=== PATIENT | male | born 1950 | race Caucasian/White ===

== ENCOUNTER 2016-12-05 17:58 | Emergency (ER) | payer MEDICARE, BC ==
--- NOTE | 2016-12-05 18:36 | EDM.PDOC ---
ED HPI GENERAL MEDICAL PROBLEM - General Chief Complaint: Head Injury Stated Complaint: FALL/BLURRY VISION Time Seen by Provider: 12/05/16 18:19 Source of Information: Reports: Patient History Limitations: Reports: No Limitations - History of Present Illness INITIAL COMMENTS - FREE TEXT/NARRATIVE: HISTORY AND PHYSICAL: History of present illness: Patient is a 66-year-old male who presents to the emergency room today after falling backwards and hitting his head. He states he was turning around and tripped on his shoe resulting in a fall landing on his left elbow and then striking his head on a concrete floor. He denies any loss of consciousness. He does take an 81 mg aspirin daily. At this time his only complaint is slightly blurred vision. He denies any headache, nausea, vomiting, chest pain or shortness of breath. Patient c/o sinus pain x 1 week Past medical history includes diabetes type 2, hypertension, elevated cholesterol and past NM 10 years ago. Review of systems: As per history of present illness and below otherwise all systems reviewed and negative. Past medical history: As per history of present illness and as reviewed below otherwise noncontributory. Surgical history: As per history of present illness and as reviewed below otherwise noncontributory. Social history: No reported history of drug or alcohol abuse. Family history: As per history of present illness and as reviewed below otherwise noncontributory. Physical exam: Gen.: Nontoxic appearing 66-year-old male. Able to speak in full sentences without shortness of breath. Alert and oriented. HEENT: Normocephalic, pupils equal and reactive bilaterally, Right TM errythmeatous, Sinus pressure with palpation, negative for conjunctival pallor or scleral icterus, mucous membranes moist, throat clear, neck supple, nontender , trachea midline. Scalp was palpated without any obvious deformities, soft spots, open abrasions or wounds. Lungs: Clear to auscultation, breath sounds equal bilaterally, chest nontender. Heart: S1S2, regular, negative for clicks, rubs, or JVD. Abdomen: Soft, nondistended, nontender. Negative for masses or hepatosplenomegaly. Negative for costovertebral tenderness. Pelvis: Stable nontender. Genitourinary: Deferred. Rectal: Deferred. Extremities: Full flexion and extension of the right elbow, no tenderness with palpation. There was no crepitus, obvious deformities or discomfort while palpating the elbow. Strong radial pulse. Good capillary refill, less than 3 seconds. +CMS. Cervical spine and back were palpated with no tenderness, step- offs, crepitus or obvious deformities. Vertebral body or point tenderness. Neurovascular unremarkable. Neuro: Awake, alert, oriented. Cranial nerves II through XII unremarkable. Cerebellum unremarkable. Motor and sensory unremarkable throughout. Exam nonfocal. Patient states that if his " did not make the come to the emergency room would not be here ". I did recommend that we do a head CT and right elbow x- ray. Patient declines the elbow x-ray, "doesn't hurt that bad ". Diagnostics: CT head Therapeutics: [] Impression: Head injury without loss of consciousness Elbow pain, right sinusitis Plan: 1. Please review the head injury instructions that we have provided in your discharge paperwork. 2. He may use Tylenol and/or ibuprofen as needed for pain relief. 3. Apply ice to the elbow if needed, rest, elevate. Although he declined an x- ray at this time, if you need further evaluation please follow-up with orthopedic provider. This phone number has been provided for you 4. Return to the ED as needed and as discussed. Definitive disposition and diagnosis as appropriate pending reevaluation and review of above. Onset: Today Duration: Hour(s): OCCIPITAL AREA Pain Score (Numeric/FACES): 2 - Related Data Allergies Allergy/AdvReac Type Severity Reaction Status Date / Time carrot Allergy Anaphylactic Verified 12/05/16 18:01 Shock celery Allergy Anaphylactic Verified 12/05/16 18:01 Shock cucumber Allergy Anaphylactic Verified 12/05/16 18:01 Shock segun Allergy Anaphylactic Verified 12/05/16 18:01 Shock peas Allergy Anaphylactic Verified 12/05/16 18:01 Shock lettuces Allergy Anaphylactic Uncoded 12/05/16 18:01 Shock Home Meds: Home Meds Celecoxib [CeleBREX] 200 mg PO DAILY 11/06/14 [History] FLUoxetine HCl [Fluoxetine HCl] 40 mg PO DAILY 11/06/14 [History] Lisinopril 10 mg PO DAILY 11/06/14 [History] Metoprolol Succinate [Toprol XL 50mg] 50 mg PO DAILY 11/06/14 [History] Simvastatin 40 mg PO DAILY 11/06/14 [History] SitaGLIPtin [Januvia] 100 mg PO DAILY 04/05/16 [History] Tamsulosin HCl [Flomax] 0.4 mg PO DAILY 04/05/16 [History] metFORMIN HCl [Metformin HCl] 500 mg PO DAILY 04/05/16 [History] Aspirin [[place] Aspirin] 81 mg PO DAILY 04/06/16 [History] Nystatin [Nystatin Crm] 1 applic TOP DAILY 04/06/16 [History] Acetaminophen/HYDROcodone [[place] 325-5 MG] 1 tab PO Q4H PRN #40 tablet 04/11/16 [Rx] Past Medical History - Past Health History Medical/Surgical History: Denies Medical/Surgical History HEENT History: Reports: Other (See Below) Other HEENT History: wears glasses Cardiovascular History: Reports: High Cholesterol, Hypertension, NM, Stents Other Cardiovascular History: NM "10 or 12 yrs ago", angiogram done but no stents needed Respiratory History: Reports: Sleep Apnea Gastrointestinal History: Reports: GERD Other Gastrointestinal History: "reflux better after loosing weight" Genitourinary History: Reports: BPH Other Genitourinary History: hydrocele as Musculoskeletal History: Reports: Arthritis Other Musculoskeletal History: pop shoulder pain Neurological History: Reports: Migraines Psychiatric History: Reports: None Endocrine/Metabolic History: Reports: Diabetes, Type II, Obesity/BMI 30+ Hematologic History: Reports: None Immunologic History: Reports: None, Other (See Below) Oncologic (Cancer) History: Reports: None Dermatologic History: Reports: Other (See Below) Other Dermatologic History: rhinophyma - Infectious Disease History Infectious Disease History: Reports: Chicken Pox, Measles - Past Surgical History Head Surgeries/Procedures: Reports: None GI Surgical History: Reports: Hernia, Inguinal Male Surgical History: Reports: Other (See Below) Musculoskeletal Surgical History: Reports: Arthroscopic Knee Social & Family History - Family History Family Medical History: Noncontributory - Tobacco Use Smoking Status *Q: Never Smoker Second Hand Smoke Exposure: No - Caffeine Use Caffeine Use: Reports: Coffee Caffeine Use Comment: 3 CUPS DAILY - Recreational Drug Use Recreational Drug Use: No ED ROS GENERAL - Review of Systems Review Of Systems: ROS reveals no pertinent complaints other than HPI. ED EXAM, HEAD INJURY - Physical Exam Exam: See Below (The dictation) Course - Vital Signs Last Recorded V/S: Last Vital Signs Temp 36.4 C 12/05/16 17:58 Pulse 65 12/05/16 17:58 Resp 18 12/05/16 17:58 BP 125/74 12/05/16 17:58 Pulse Ox - Orders/Labs/Meds Orders: Active Orders 24 hr Category Date Time Status Head wo Cont [CT] Stat Exams 12/05/16 18:24 Taken Departure - Departure Time of Disposition: 19:52 Disposition: Home, Self-Care 01 Clinical Impression: Head injury, closed, without LOC, Sinusitis, Elbow pain, right - Discharge Information Instructions: Head Injury, Adult, [id number] Referrals: Gina Faith NP [Primary Care Provider] - Forms: ED Department Discharge Additional Instructions: My general discharge The following information is given to patients seen in the emergency department who are being discharged to home. This information is to outline your options for follow-up care. We provide all patients seen in our emergency department with a follow-up referral. The need for follow-up, as well as the timing and circumstances, are variable depending upon the specifics of your emergency department visit. If you don't have a primary care physician on staff, we will provide you with a referral. We always advise you to contact your personal physician following an emergency department visit to inform them of the circumstance of the visit and for follow-up with them and/or the need for any referrals to a consulting specialist. The emergency department will also refer you to a specialist when appropriate. This referral assures that you have the opportunity for follow-up care with a specialist. All of these measure are taken in an effort to provide you with optimal care, which includes your follow-up. Under all circumstances we always encourage you to contact your private physician who remains a resource for coordinating your care. When calling for follow-up care, please make the office aware that this follow-up is from your recent emergency room visit. If for any reason you are refused follow-up, please contact the [facility] Emergency Department at and asked to speak to the emergency department charge nurse. [facility] - [facility] Professional [address], [address] [place] [address] 1. Please review the head injury instructions that we have provided in your discharge paperwork. 2. He may use Tylenol and/or ibuprofen as needed for pain relief. 3. Apply ice to the elbow if needed, rest, elevate. Although he declined an x- ray at this time, if you need further evaluation please follow-up with orthopedic provider. This phone number has been provided for you 4. Return to the ED as needed and as discussed. - My Orders Last 24 Hours: My Active Orders 12/05/16 18:24 Head wo Cont [CT] Stat - Assessment/Plan Last 24 Hours: My Active Orders 12/05/16 18:24 Head wo Cont [CT] Stat
[2016-12-05 20:19] VITALS: BP 137/80
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
== END 2016-12-05 20:10 | disposition home or self-care (01) ==
LOC: MW.ED 17:58
DX: S09.90XA Unspecified injury of head, initial encounter (principal); M25.521 Pain in right elbow; E11.9 Type 2 diabetes mellitus without complications; E66.9 Obesity, unspecified; I10 Essential (primary) hypertension; E78.00 Pure hypercholesterolemia, unspecified; Z79.82 Long term (current) use of aspirin; Z79.899 Other long term (current) drug therapy; Z91.018 Allergy to other foods; Z98.890 Other specified postprocedural states; Z79.84 Long term (current) use of oral hypoglycemic drugs; W01.198A Fall on same level from slipping, tripping and stumbling with subsequent striking against other object, initial encounter
CPT/HCPCS: 70450; 70450-26; 99283-25; 99284

== ENCOUNTER 2017-03-16 13:27 | Emergency (ER) | payer MEDICARE, BC ==
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
[2017-03-16 15:02] LABS: CHLORIDE,CL 106 mmol/L (98-110); SODIUM,NA 139 mmol/L (136-146)
[2017-03-16] MEDS ORDERED: Iopamidol 755 MG/ML 200 ML Multipack Bottle IVPUSH ONE (15:40)
[2017-03-16] MEDS ORDERED: Morphine 2 MG/ML Syringe IVPUSH ONE (15:48)
[2017-03-16] MEDS ORDERED: Sodium Chloride 0.9% 1,000 ML IV ONE (15:48)
[2017-03-16 19:24] VITALS: BP 128/84
--- NOTE | 2017-03-18 14:28 | CR ---
EXAM DATE: 03/16/17 PATIENT'S AGE: 66 Patient: CANDY ROWLAND Facility: [place], [place] Site . Site : 1950 Study: XRay Knee Right [id number]/27/2018 3:20:25 PM Ordering Physician: Doctor Payton Final Report: INDICATION: Injury. Pain and bruising. Technique.: Three views right knee. FINDINGS: Moderately prominent degenerative arthritis right knee with narrowing of all 3 compartments greatest in the medial compartment. Lucency along the articular surface of the right medial tibial plateau nonspecific. Moderate chondrocalcinosis. Moderate increased calcification may have moderate abnormal calcification in the soft tissues posterior to the knee of uncertain etiology and could be a partially calcified mass or calcification of a complex Garcia`s cyst. Clinical correlation recommended. Edema and soft tissue swelling right knee anteriorly. No acute fracture or dislocation right knee. Right knee otherwise negative. Dictated by Chacorta Rebollar MD @ Mar 16 2017 3:49PM (Electronic Signature) Report Signed by Proxy. JONO
--- NOTE | 2017-03-18 14:37 | US ---
EXAM DATE: 03/16/17 PATIENT'S AGE: 66 Patient: CANDY ROWLAND Facility: [place], [place] Site . Site : 1950 Study: US Extremity Right [id number]/27/2018 3:13:16 PM Ordering Physician: Doctor Payton Final Report: INDICATION: Trauma, pain, bruising. TECHNIQUE: Grayscale and Doppler duplex sonography performed. FINDINGS: There is no ultrasound evidence of deep venous thrombosis at this time in the right lower extremity deep venous system. Posterior to the knee, there is a hypoechoic area measuring 4 cm largest dimension, mildly heterogeneous, suggesting the possibility of hematoma, correlation with recent injury recommended. A complicated popliteal cyst would also be in the differential. Impression 1. No evidence of right lower extremity DVT. Probable hematoma posterior to right knee. Dictated by Alfredo Coe MD @ Mar 16 2017 3:43PM (Electronic Signature) Report Signed by Proxy. JONO
--- NOTE | 2017-03-18 14:38 | CR ---
EXAM DATE: 03/16/17 PATIENT'S AGE: 66 Patient: CANDY ROWLAND Facility: [place], [place] Site . Site : 1950 Study: XRay Pelvis [id number]/27/2018 3:21:05 PM Ordering Physician: Doctor Payton Final Report: INDICATION: Injury, bruising, pain. TECHNIQUE: Single AP view. FINDINGS: There is no evidence of fracture. No acute bony abnormality is identified. Mild degenerative change of the hip joints with superolateral osteophytes, right greater than left. Dictated by Alfredo Coe MD @ Mar 16 2017 3:28PM (Electronic Signature) Report Signed by Proxy. JONO
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
== END 2017-03-16 17:23 | disposition home or self-care (01) ==
LOC: MW.ED 13:27
DX: S20.211A Contusion of right front wall of thorax, initial encounter (principal); S80.01XA Contusion of right knee, initial encounter; E78.00 Pure hypercholesterolemia, unspecified; I10 Essential (primary) hypertension; E11.9 Type 2 diabetes mellitus without complications; Z91.018 Allergy to other foods; Z79.899 Other long term (current) drug therapy; Z79.82 Long term (current) use of aspirin; Z79.84 Long term (current) use of oral hypoglycemic drugs; V94.9XXA Unspecified water transport accident, initial encounter
CPT/HCPCS: 36415; 71275; 72170; 73562; 80053; 85025; 85379; 93971; 96361; 96374; 99284; J2270; J7040; Q9967

== ENCOUNTER 2017-08-07 09:03 | Day surgery (SDC) | payer MEDICARE, BC ==
--- NOTE | 2017-08-07 08:17 | PCM.OPNOTE ---
- General Post-Op/Procedure Note Date of Surgery/Procedure: 08/07/17 Operative Procedure(s): R shoulder arthroscopy with SAD, extensive debridement, DCE, and RTCR Post-Op Diagnosis: R shoulder impingement, extensive debridement inc biceps tenotomy, DCE, and RTCR Anesthesia Technique: General ET Tube, Regional Block Primary Surgeon: Kamini Lanza President Sales And Marketing: Lynn Campos in mLs: 10 Condition: Good Free Text/Narrative:: #[id number]
[~2017-08-07 09:03] MED LIST: Acetaminophen/HYDROcodone 325-10 MG Tab PO PRN; Bupivacaine 0.5% 30 ML SDV ONE; Dexamethasone 4 MG/ML 5 ML MDV ONE; Ketorolac 10 MG Tab PO PRN; Lactated Ringers 1,000 ML IV SCH; ceFAZolin 2 GM in Premix Bag 1 BAG IV SCH
[2017-08-07] MEDS ORDERED: Lidocaine 2% 5 ML SDV ONE (09:29)
[2017-08-07] MEDS ORDERED: Propofol 200 MG/20 ML SDV ONE ×3 (09:29→12:47)
[2017-08-07] MEDS ORDERED: fentaNYL 250 MCG/5 ML SDV ONE (09:30)
[2017-08-07] MEDS ORDERED: Midazolam 1 MG/ML 2 ML SDV ONE (09:30)
[2017-08-07] MEDS ORDERED: Sodium Chloride 0.9% 20 ML ONE (09:31)
[2017-08-07] MEDS ORDERED: ceFAZolin 1 GM Vial ONE (09:31)
[2017-08-07] MEDS ORDERED: Succinylcholine 200 MG/10 ML MDV ONE (09:39)
--- NOTE | 2017-08-07 09:40 | PCM.PREANE ---
Preanesthetic Assessment - Anesthesia/Transfusion/Family Hx Anesthesia History: Prior Anesthesia Without Reaction Family History of Anesthesia Reaction: No Transfusion History: No Prior Transfusion(s) Intubation History: Unknown - Review of Systems General: No Symptoms Pulmonary: No Symptoms Cardiovascular: No Symptoms Gastrointestinal: No Symptoms Neurological: No Symptoms Other: Reports: None - Physical Assessment Height: 1.91 m Weight: 113.852 kg ASA Class: 3 Mental Status: Alert & Oriented x3 Airway Class: Mallampati = 3 Dentition: Reports: Normal Dentition (gold crowns upper front teeth) Thyro-Mental Finger Breadths: 3 Mouth Opening Finger Breadths: 2 ROM/Head Extension: Full Lungs: Clear to Auscultation, Normal Respiratory Effort Cardiovascular: Regular Rate, Regular Rhythm - Lab Values: Laboratory Last Values POC Glucose 130 mg/dL (60-110) H 08/07/17 09:30 - Allergies Allergies/Adverse Reactions: Allergies Allergy/AdvReac Type Severity Reaction Status Date / Time carrot Allergy Anaphylactic Verified 08/05/17 09:54 Shock celery Allergy Anaphylactic Verified 08/05/17 09:54 Shock cucumber Allergy Anaphylactic Verified 08/05/17 09:54 Shock segun Allergy Anaphylactic Verified 08/05/17 09:54 Shock peas Allergy Anaphylactic Verified 08/05/17 09:54 Shock lettuces Allergy Anaphylactic Uncoded 12/05/16 18:01 Shock - Blood Blood Available: No - Anesthesia Plan Pre-Op Medication Ordered: None - Acknowledgements Anesthesia Type Planned: General Anesthesia, Regional Block (interscalene brachial plexus block) Pt an Appropriate Candidate for the Planned Anesthesia: Yes Alternatives and Risks of Anesthesia Discussed w Pt/Guardian: Yes Pt/Guardian Understands and Agrees with Anesthesia Plan: Yes PreAnesthesia Questionnaire - Past Health History Medical/Surgical History: Denies Medical/Surgical History HEENT History: Reports: Other (See Below) Other HEENT History: wears glasses Cardiovascular History: Reports: CAD (single coronary artery that they were not able to stent), High Cholesterol, Hypertension, [place] Other Cardiovascular History: hx [place], angiogram done but no stents needed Respiratory History: Reports: Sleep Apnea Other Respiratory History: no CPAP needed after weight loss Gastrointestinal History: Reports: GERD Other Gastrointestinal History: "reflux better after loosing weight" Genitourinary History: Reports: BPH Other Genitourinary History: hydrocele as Musculoskeletal History: Reports: Arthritis Neurological History: Reports: Migraines Psychiatric History: Reports: Anxiety, Depression Endocrine/Metabolic History: Reports: Diabetes, Type II, Obesity/BMI 30+ Hematologic History: Reports: None Immunologic History: Reports: None, Other (See Below) Oncologic (Cancer) History: Reports: None Dermatologic History: Reports: None - Infectious Disease History Infectious Disease History: Reports: Chicken Pox, Measles, Mumps - Past Surgical History Head Surgeries/Procedures: Reports: None HEENT Surgical History: GI Surgical History: Reports: Hernia, Inguinal Male Surgical History: Musculoskeletal Surgical History: Reports: Arthroscopic Knee Other Musculoskeletal Surgeries/Procedures:: hx elbow surgery and pop knee arthroscopy - SUBSTANCE USE Smoking Status *Q: Never Smoker Recreational Drug Use History: No - HOME MEDS Home Medications: Home Meds Celecoxib [CeleBREX] 200 mg PO DAILY 11/06/14 [History] FLUoxetine HCl [Fluoxetine HCl] 40 mg PO DAILY 11/06/14 [History] Lisinopril 20 mg PO DAILY 11/06/14 [History] Metoprolol Succinate [Toprol XL 50mg] 50 mg PO DAILY 11/06/14 [History] Simvastatin 40 mg PO DAILY 11/06/14 [History] Tamsulosin HCl [Flomax] 0.4 mg PO DAILY 04/05/16 [History] metFORMIN HCl [Metformin HCl] 500 mg PO DAILY 04/05/16 [History] Aspirin 325 mg PO DAILY 03/16/17 [History] Omeprazole 40 mg PO DAILY 08/05/17 [History] - CURRENT (IN HOUSE) MEDS Current Meds: Current Medications Hydrocodone Bitart/Acetaminophen ([place] 325-10 Mg) 1 - 2 tab PO Q4H PRN PRN Reason: Pain Cefazolin Sodium/Dextrose 2 gm (/ Premix) 50 mls @ 100 mls/hr IV ONCALL JOHNNY Lactated Ringer's (Ringers, Lactated) 1,000 mls @ 100 mls/hr IV ASDIRECTED [facility] Ketorolac Tromethamine (Toradol) 10 mg PO Q6H PRN PRN Reason: Pain Stop: 08/12/17 08:01 Discontinued Medications Bupivacaine HCl (Marcaine 0.5%) Confirm Administered Dose 30 ml .ROUTE .STK-MED ONE Stop: 08/07/17 08:07 Cefazolin Sodium (Ancef) Confirm Administered Dose 2 gm .ROUTE .STK-MED ONE Stop: 08/07/17 09:32 Dexamethasone (Dexamethasone) Confirm Administered Dose 20 mg .ROUTE .STK-MED ONE Stop: 08/07/17 08:06 Fentanyl (Sublimaze) Confirm Administered Dose 250 mcg .ROUTE .STK-MED ONE Stop: 08/07/17 09:31 Lidocaine HCl (Xylocaine-Mpf 1%) Confirm Administered Dose 5 mls @ as directed .ROUTE .STK-MED ONE Stop: 08/07/17 08:06 Sodium Chloride (Normal Saline) Confirm Administered Dose 20 mls @ as directed .ROUTE .STK-MED ONE Stop: 08/07/17 09:32 Lidocaine (Xylocaine-Mpf 2%) Confirm Administered Dose 10 ml .ROUTE .STK-MED ONE Stop: 08/07/17 09:30 Midazolam HCl (Versed 1 Mg/Ml) Confirm Administered Dose 2 mg .ROUTE .STK-MED ONE Stop: 08/07/17 09:31 Propofol (Diprivan 20 Ml) Confirm Administered Dose 400 mg .ROUTE .STK-MED ONE Stop: 08/07/17 09:30
[2017-08-07] MEDS ORDERED: Naloxone 0.4 MG/ML Syringe ONE (10:17)
[2017-08-07] MEDS ORDERED: Rocuronium 10 MG/ML 10 ML Syringe ONE (11:28)
[2017-08-07] MEDS ORDERED: Glycopyrrolate 0.2 MG/ML SDV ONE (11:29)
[2017-08-07] MEDS ORDERED: ePHEDrine 50 MG/ML SDV ONE ×2 (11:29→12:46)
[2017-08-07] MEDS ORDERED: Phenylephrine/Normal Saline 100 MCG/ML 10 ML Syringe ONE ×2 (11:38→12:38)
[2017-08-07] MEDS ORDERED: fentaNYL 100 MCG/2 ML SDV IVPUSH PRN (12:03)
[2017-08-07] MEDS ORDERED: HYDROmorphone 2 MG/ML SDV IVPUSH ONE (12:03)
[2017-08-07] MEDS ORDERED: fentaNYL 100 MCG/2 ML SDV ONE (12:36)
--- NOTE | 2017-08-07 14:18 | OR ---
SURGEON: Kamini Lanza MD DATE OF PROCEDURE: 08/07/2017 PREOPERATIVE DIAGNOSES: 1. Right shoulder impingement syndrome. 2. Right shoulder biceps tendinopathy. 3. 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 4. Right shoulder rotator cuff tear. POSTOPERATIVE DIAGNOSES: 1. Right shoulder impingement syndrome. 2. Right shoulder biceps tendinopathy. 3. 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 4. Right shoulder rotator cuff tear. 5. Right shoulder degenerative anterior and posterior labral tear. PROCEDURES: Right shoulder arthroscopy with: 1. Subacromial decompression with release of coracoacromial ligament and acromioplasty. 2. Extensive debridement including debridement of degenerative anterior and posterior labral tear and biceps tenotomy. 3. Arthroscopic distal clavicle excision. 4. Arthroscopic right rotator cuff repair. TRAFFIC EXPERT: Lynn Campos PA-C ANESTHESIA: General with interscalene block. ESTIMATED BLOOD LOSS: 10 mL. TOURNIQUET TIME: 0 minutes. COMPLICATIONS: None. DVT PROPHYLAXIS: PAS boot to bilateral lower extremities. IMPLANTS USED: Biomet 2.9 mm JuggerKnot anchor x2, 1 implanted; AccuVein 5.5 mm PEEK Quattro suture anchor and Arthrex 5.5 mm SwiveLock suture anchor ([employer]). BRIEF HISTORY: Seun is a 67-year-old male who has had complaint of progressive right shoulder pain. He had failed conservative treatment. Due to his lack of response to conservative treatment, I did recommend surgical intervention. The risks and goals of procedure were discussed with the patient and were documented preoperatively. He agreed to proceed. PROCEDURE IN DETAIL: the patient was properly identified and brought to the operating room. He was transferred from the OR cart and placed on the operating table in supine position. General anesthesia was administered. An interscalene block had been administered preoperatively. After adequate anesthesia was obtained, the patient was placed into a beach-chair position. Care was taken to pad all bony prominences. The head was secured. The right upper extremity was then prepped in standard fashion using ChloraPrep solution. It was then sterilely draped. A time-out was performed to ensure correct site and procedure. Preoperative antibiotics were given. The surgical site had been marked preoperatively. A marking pen was used to identify the bony landmarks. Approximately 30 mL of normal saline was introduced into the glenohumeral joint via a posterior portal. A posterior portal was established. Blunt trocar and cannula were introduced into the glenohumeral joint. Camera, inflow, and outflow were assembled. The rotator interval showed mild synovitis. An anterior portal was then established. The subscapularis was visualized and probed. It was found to be intact. No loose bodies were present within the subscapular recess. The anterior labrum was then inspected. He had extensive degenerative tearing with crystal deposition noted. Electrocautery was used to smooth the edges of the degenerative labrum so that no further impingement occurred. The biceps tendon was then inspected. There appeared to be some peel back on its insertion onto the labrum. The biceps was pulled into the joint and the distal biceps tendon showed evidence of mild synovitis along with longitudinal tearing. I elected to proceed with a biceps tenotomy. This was performed with electrocautery. The biceps tendon easily retracted into the biceps tendon sheath. The attachment site was smoothed. I then inspected the posterior labrum. Degenerative tearing was also noted in this area and this was also resected using a combination of the shaver and electrocautery. Both the glenoid and humeral head were inspected, no significant degenerative changes were found. The axillary pouch showed no synovitis or loose bodies. The arm was then brought into an abducted and externally rotated position. The bare area was noted posteriorly. Nearly full-thickness tearing of the anterior supraspinatus was noted. The arm was then brought back into a neutral position. Blunt trocar and cannula were introduced into the subacromial space. A lateral portal was established. Extensive bursectomy was performed using electrocautery and the shaver. The coracoacromial ligament was released along the anterior portion of the acromion. There appeared to be some impingement within the subacromial space. A 5.5 mm maría elena was then used to perform an acromioplasty. This provided good decompression of the subacromial space. Tissues around the distal clavicle were then cauterized. He had a large degenerative spur inferiorly which was removed with the 5.0 mm maría elena. Distal clavicle excision was then performed using the 5.0 mm maría elena. Approximately 8-mm of distal clavicle was excised using the maría elena. Care was taken to keep the superior capsule intact. The rotator cuff was then inspected. The area along the anterior portion of the supraspinatus was probed. There was found to be a nearly full-thickness tear with softening. The tear was then completed. The maría elena was used to roughen the footprint site. A cuff grasper was used to pull the cuff back and it was able to be easily reapproximated to the footprint. A 2.9 mm JuggerKnot anchor was placed anteriorly. A second one was placed in a slightly posterior position to this, just lateral to the articular cartilage. With tension, this JuggerKnot pulled out. I then placed a 5.5 mm PEEK anchor into this position. This did not have any evidence of pullout. The bone did appear somewhat soft. The sutures were then passed through the rotator cuff and were tied down. This provided good reapproximation of the cuff to the footprint. I elected to proceed with a lateral row to get good compression of the cuff to the bone. A 4.5 mm PEEK anchor with titanium tip was then placed. The sutures were adequately tensioned and it was locked into place. Unfortunately, the bone was again quite soft and as the anchor was probed, it was found not to be of adequate strength and I was able to pull it out with the suture. I then replaced the sutures into a 5.5 mm SwiveLock anchor. This was placed into the same bony footprint and I was able to audibly hear and feel the purchase into the bone. The cuff repair was then probed, there was found to be a nearly water tight closure. Suture ends were then trimmed. We did use PassPort cannulae for the lateral portals. Additional portal was placed anteriorly to assist with suture management and insertion of the suture anchors. The portal sites were closed with 3-0 nylon. Xeroform gauze was placed over the wound and a bulky dressing was applied. He was awakened from his anesthetic and transferred back to the operating room cart. He was brought to recovery room in stable condition. All needle and sponge counts were correct. ANKUR / COLE /[id number]
--- NOTE | 2017-08-07 14:18 | PCM48HPAN ---
Post Anesthesia Note - EVALUATION WITHIN 48HRS OF ANESTHETIC Vital Signs in Normal Range: Yes Patient Participated in Evaluation: Yes Respiratory Function Stable: Yes Airway Patent: Yes Cardiovascular Function Stable: Yes Hydration Status Stable: Yes Pain Control Satisfactory: Yes Nausea and Vomiting Control Satisfactory: Yes Mental Status Recovered: Yes Resp Rate: 17 - COMMENTS/OBSERVATIONS Free Text/Narrative:: no anesthesia problems
--- NOTE | 2017-08-07 14:23 | PCM.SN ---
- Free Text/Narrative Note: Right interscalene brachial plexus block performed under sterile conditions using nerve stimulator. 28 cc of 0.5 bupivacaine and 8 mg decadrone used. very dense block obtained. Patient tolerated well.
[2017-08-07 18:03] VITALS: BP 133/83
== END 2017-08-07 16:20 | disposition home or self-care (01) ==
LOC: MW.SDS 09:03
PROVIDERS: ATTEND Orthopaedic Surgery
DX: M75.121 Complete rotator cuff tear or rupture of right shoulder, not specified as traumatic (principal); M75.41 Impingement syndrome of right shoulder; M19.011 Primary osteoarthritis, right shoulder; S43.431A Superior glenoid labrum lesion of right shoulder, initial encounter; E11.9 Type 2 diabetes mellitus without complications; E78.00 Pure hypercholesterolemia, unspecified; I10 Essential (primary) hypertension; I25.10 Atherosclerotic heart disease of native coronary artery without angina pectoris; K21.9 Gastro-esophageal reflux disease without esophagitis; G47.30 Sleep apnea, unspecified; F41.9 Anxiety disorder, unspecified; F32.9 Major depressive disorder, single episode, unspecified; E66.9 Obesity, unspecified; Z79.82 Long term (current) use of aspirin; Z79.899 Other long term (current) drug therapy
CPT/HCPCS: 29823; 29824; 29826; 29827; 82962; 88304; C1713; J0330; J0690; J1100; J2250; J3010; J7120; A9270-GY; J2704

== ENCOUNTER 2021-04-03 02:34 | Emergency (ER) | payer MEDICARE, BC ==
[2021-04-03 02:47] VITALS: BP 178/85; PULSE 68
[2021-04-03] MEDS ORDERED: fentaNYL 50 MCG/ML SDV IM ONE (03:04)
[2021-04-03] MEDS ORDERED: Ondansetron 4 MG Tab.DIS PO ONE (03:04)
== END 2021-04-03 03:24 | disposition home or self-care (01) ==
LOC: MW.ED 02:34
DX: M25.562 Pain in left knee (principal); I25.10 Atherosclerotic heart disease of native coronary artery without angina pectoris; E78.00 Pure hypercholesterolemia, unspecified; I10 Essential (primary) hypertension; I25.2 Old myocardial infarction; K21.9 Gastro-esophageal reflux disease without esophagitis; E11.9 Type 2 diabetes mellitus without complications; M19.90 Unspecified osteoarthritis, unspecified site; E66.9 Obesity, unspecified; Z68.29 Body mass index [BMI] 29.0-29.9, adult; Z91.018 Allergy to other foods; Z88.5 Allergy status to narcotic agent; Z79.01 Long term (current) use of anticoagulants
CPT/HCPCS: 73562; 96372; 99283; A9270; J3010

== ENCOUNTER 2022-02-04 10:16 | Emergency (ER) | payer MEDICARE, BC ==
[2022-02-04] MEDS ORDERED: Sodium Chloride 0.9% 10 ML Syringe FLUSH PRN (10:46)
[2022-02-04] MEDS ORDERED: Sodium Chloride 0.9% 2.5 ML Syringe FLUSH PRN (10:46)
[2022-02-04] MEDS ORDERED: Ketorolac 30 MG/ML SDV IVPUSH ONE (10:47)
[2022-02-04] MEDS ORDERED: Sodium Chloride 0.9% 500 ML IV ONE (10:47)
[2022-02-04] MEDS ORDERED: Ondansetron 4 MG/2 ML SDV IVPUSH ONE ×2 (10:47→18:35)
[2022-02-04 11:14] LABS: CARBON DIOXIDE,CO2 28.7 mmol/L (21.0-32.0); POTASSIUM,K 3.8 mmol/L (3.5-5.1)
[2022-02-04 11:42] LABS: CORONAVIRUS COVID-19 NAA NEGATIVE (NEGATIVE); INFLUENZA A NAA NEGATIVE (NEGATIVE); INFLUENZA B NAA NEGATIVE (NEGATIVE)
[2022-02-04] MEDS ORDERED: Metoclopramide 10 MG/2 ML SDV IVPUSH ONE (12:52)
[2022-02-04] MEDS ORDERED: Morphine 2 MG/ML SYRINGE IVPUSH ONE (13:41)
[2022-02-04 15:24] VITALS: BP 121/78; PULSE 72
[2022-02-04] MEDS ORDERED: Sodium Chloride 0.9% 1,000 ML IV ONE (15:28)
[2022-02-04] MEDS ORDERED: Acetaminophen/Butalbital/Caffeine 325-50-40 MG Tab PO ONE (17:39)
== END 2022-02-04 19:02 | disposition home or self-care (01) ==
LOC: MW.ED 10:16
DX: A08.4 Viral intestinal infection, unspecified (principal); R51.9 Headache, unspecified; I25.10 Atherosclerotic heart disease of native coronary artery without angina pectoris; I10 Essential (primary) hypertension; I25.2 Old myocardial infarction; E11.9 Type 2 diabetes mellitus without complications; E66.9 Obesity, unspecified; Z68.29 Body mass index [BMI] 29.0-29.9, adult; Z91.018 Allergy to other foods; Z88.5 Allergy status to narcotic agent; Z79.01 Long term (current) use of anticoagulants; Z79.899 Other long term (current) drug therapy; Z20.822 Contact with and (suspected) exposure to COVID-19
CPT/HCPCS: 0240U; 36415; 70450; 80053; 81001; 82009; 82947; 83735; 84484; 85025; 85610; 87651; 96361; 96374; 96375; 96376; 99284; A9270; J1885; J2270; J2405; J2765; J3490; J7030

== ENCOUNTER → 2022-03-09 | Day surgery (SDC) | payer MEDICARE, BC ==
[~2022-03-09] MED LIST changes: -Acetaminophen/HYDROcodone 325-10 MG Tab PO PRN; -Bupivacaine 0.5% 30 ML SDV ONE; -Dexamethasone 4 MG/ML 5 ML MDV ONE; +Famotidine 20 MG/2 ML SDV IVPUSH ONE; +Famotidine 20 MG/2 ML SDV ONE; -Ketorolac 10 MG Tab PO PRN; +Ketorolac 30 MG/ML SDV ONE; +Lidocaine 2% 5 ML SDV ONE; +Magnesium Sulfate (4.06 MEQ/ML) 5 GM/10 ML SDV ONE; +Ondansetron 4 MG/2 ML SDV IVPUSH PRN; +Ondansetron 4 MG/2 ML SDV ONE; +Propofol 200 MG/20 ML SDV ONE; +Water For Injection, Sterile 20 ML ONE; -ceFAZolin 2 GM in Premix Bag 1 BAG IV SCH; +cefOXitin 1 GM Vial ONE; +cefOXitin 2 GM in Premix Bag 1 BAG IV ONE; +fentaNYL 100 MCG/2 ML SDV ONE
[2022-03-09 12:05] VITALS: BP 138/72; PULSE 62
== END | disposition home or self-care (01) ==
LOC: MW.SDS 08:33
PROVIDERS: ATTEND Surgery
DX: K57.30 Diverticulosis of large intestine without perforation or abscess without bleeding (principal); J30.9 Allergic rhinitis, unspecified; M19.90 Unspecified osteoarthritis, unspecified site; G47.30 Sleep apnea, unspecified; I10 Essential (primary) hypertension; E11.9 Type 2 diabetes mellitus without complications; I25.2 Old myocardial infarction; E78.00 Pure hypercholesterolemia, unspecified; K21.9 Gastro-esophageal reflux disease without esophagitis; N40.0 Benign prostatic hyperplasia without lower urinary tract symptoms; I25.10 Atherosclerotic heart disease of native coronary artery without angina pectoris; F41.9 Anxiety disorder, unspecified; F32.A Depression, unspecified; Z88.5 Allergy status to narcotic agent; Z91.018 Allergy to other foods; Z79.899 Other long term (current) drug therapy; Z79.84 Long term (current) use of oral hypoglycemic drugs; Z79.82 Long term (current) use of aspirin; Z98.890 Other specified postprocedural states; Z86.16 Personal history of COVID-19; Z96.653 Presence of artificial knee joint, bilateral
CPT/HCPCS: 45378; J0131; J0694; J1885; J2405; J2704; J3010; J3475; J3490; J7120

== ENCOUNTER 2024-06-15 15:57 | Emergency (ER) | payer MEDICARE, BC ==
[2024-06-15 16:06] VITALS: BP 154/92; PULSE 81
[2024-06-15] MEDS ORDERED: Famotidine 40 MG/5 ML Bottle PO STA (17:09)
[2024-06-15] MEDS: diphenhydrAMINE 50 MG/ML SDV IM ONE (17:19)
[2024-06-15] MEDS: Famotidine 20 MG Tab PO STA (17:19)
== END 2024-06-15 19:05 | disposition home or self-care (01) ==
LOC: MW.ED 15:57
DX: T78.40XA Allergy, unspecified, initial encounter (principal); Z75.3 Unavailability and inaccessibility of health-care facilities; E11.9 Type 2 diabetes mellitus without complications; K21.9 Gastro-esophageal reflux disease without esophagitis; Z79.82 Long term (current) use of aspirin; Z79.899 Other long term (current) drug therapy; Z91.018 Allergy to other foods; Z88.5 Allergy status to narcotic agent
CPT/HCPCS: 96372; 99284; A9270; J1100; J1200; 99283

== ENCOUNTER 2024-07-27 05:40 | Emergency (ER) | payer MEDICARE, BC ==
[2024-07-27 06:39] LABS: BASOPHILS ABSOLUTE AUTO 0.01 K/uL (0.00-0.20); BASOPHILS PERCENT AUTO 0.2 % (0.0-1.0); EOSINOPHILS ABSOLUTE AUTO 0.09 K/uL (0.00-0.45); HEMATOCRIT 31.5 % (42.0-52.0); HEMOGLOBIN 10.5 g/dL (14.0-18.0); LYMPHOCYTES ABSOLUTE AUTO 0.58 K/uL (1.00-4.80); LYMPHOCYTES PERCENT AUTO 12.7 % (24.0-44.0); MEAN CORPUSCULAR HEMOGLOBIN 32.4 pg (28.0-32.0); MEAN CORPUSCULAR HGB CONC 33.3 g/dL (32.0-36.0); MEAN CORPUSCULAR VOLUME 97.2 fL (83.0-99.0); MEAN PLATELET VOLUME 8.5 fL (9.4-12.4); MONOCYTES ABSOLUTE AUTO 0.45 K/uL (0.00-0.80); MONOCYTES PERCENT AUTO 9.9 % (0.0-8.0); NEUTROPHILS ABSOLUTE AUTO 3.42 K/uL (1.80-7.70); NEUTROPHILS PERCENT AUTO 75.2 % (41.0-71.0); PLATELET COUNT,PLT 167 K/uL (150-400); RED BLOOD CELL COUNT 3.24 M/uL (4.52-5.90); WHITE BLOOD CELL COUNT,WBC 4.55 K/uL (3.9-11.3)
[2024-07-27 07:02] LABS: ALBUMIN 2.8 g/dL (3.4-5.0); BILIRUBIN TOTAL 0.3 mg/dL (0.2-1.0); CALCIUM 8.4 mg/dL (8.5-10.1); CARBON DIOXIDE,CO2 28.1 mmol/L (21.0-32.0); CREATININE 1.2 mg/dL (0.8-1.3); EST CRCL DRUG DOSING (CG) 63.57 mL/min; POTASSIUM,K 4.5 mmol/L (3.5-5.1); PROTEIN TOTAL,TP 5.5 g/dL (6.4-8.2)
[2024-07-27 07:14] VITALS: PULSE 72
[2024-07-27 07:44] VITALS: BP 153/82
== END 2024-07-27 07:59 | disposition home or self-care (01) ==
LOC: MW.ED 05:40
DX: K64.4 Residual hemorrhoidal skin tags (principal); E11.9 Type 2 diabetes mellitus without complications; I25.2 Old myocardial infarction; K21.9 Gastro-esophageal reflux disease without esophagitis; Z79.82 Long term (current) use of aspirin; Z79.899 Other long term (current) drug therapy; Z91.018 Allergy to other foods; Z88.8 Allergy status to other drugs, medicaments and biological substances; Z88.5 Allergy status to narcotic agent; Z91.048 Other nonmedicinal substance allergy status
CPT/HCPCS: 36415; 80053; 85025; 99283; 99284